=== PATIENT | male | born 1970 | race African-American/Black ===

== ENCOUNTER 2022-04-08 23:01 | Emergency (ER) | payer MEDICAID ==
[~2022-04-08] VITALS: Ht 175.3 cm; Wt 100.0 kg
[2022-04-09] MEDS ORDERED: IBUPROFEN 600MG TABLET PO ONE (02:30)
[2022-04-09] MEDS ORDERED: IBUPROFEN 600MG TABLET PO NR (02:45)
[2022-04-09] MEDS: IBUPROFEN 200MG TABLET PO NR ×2 (02:45→03:22)
[2022-04-09] MEDS ORDERED: IBUP-2029 MT (04:07)
[2022-04-09 04:33] VITALS: BP 120/78
[2022-04-10] MEDS ORDERED: IBUP-2029 PO (10:40)
== END 2022-04-09 04:20 | disposition home or self-care (01) ==
LOC: ER 23:01
DX: M79.671 Pain in right foot (principal); R60.9 Edema, unspecified; E11.9 Type 2 diabetes mellitus without complications
CPT/HCPCS: 73630; 93971; 99284

== ENCOUNTER 2022-04-10 09:13 | Emergency (ER) | payer MEDICAID ==
[~2022-04-10] VITALS: Ht 175.3 cm; Wt 98.0 kg
[~2022-04-10 09:13] MED LIST: IBUP-2029 MT
[2022-04-10 09:23] VITALS: BP 167/111
[2022-04-10] MEDS ORDERED: IBUP-2029 PO (10:40)
== END 2022-04-10 10:00 | disposition home or self-care (01) ==
LOC: ER 09:13
DX: S92.411A Displaced fracture of proximal phalanx of right great toe, initial encounter for closed fracture (principal); E11.9 Type 2 diabetes mellitus without complications; X58.XXXA Exposure to other specified factors, initial encounter; Y93.89 Activity, other specified; Y92.9 Unspecified place or not applicable
CPT/HCPCS: 99282; Z7610

== ENCOUNTER 2025-03-07 12:52 | Emergency (ER) | payer SELFPAY ==
[~2025-03-07] VITALS: Ht 175.3 cm; Wt 104.0 kg
[~2025-03-07 12:52] MED LIST changes: +IBUP-2029 PO
[2025-03-07 12:59] VITALS: O2SAT 98
[2025-03-07] MEDS ORDERED: IBUP-2028 MT (15:41)
[2025-03-07 15:53] VITALS: BP 133/88; PULSE 94; RESP 18; TEMP 36.7; O2SAT 98
== END 2025-03-07 15:54 | disposition home or self-care (01) ==
LOC: ER 12:52
DX: S86.112A Strain of other muscle(s) and tendon(s) of posterior muscle group at lower leg level, left leg, initial encounter (principal); M17.12 Unilateral primary osteoarthritis, left knee; E11.9 Type 2 diabetes mellitus without complications; F12.90 Cannabis use, unspecified, uncomplicated; X58.XXXA Exposure to other specified factors, initial encounter; Y93.89 Activity, other specified; Y92.89 Other specified places as the place of occurrence of the external cause; Y99.8 Other external cause status
CPT/HCPCS: 73562; 73590; 93970; 99284

== ENCOUNTER 2025-03-11 17:05 | Emergency (ER) | payer SELFPAY ==
[~2025-03-11] VITALS: Ht 175.3 cm; Wt 104.0 kg
[~2025-03-11 17:05] MED LIST changes: +IBUP-2028 MT
[2025-03-11 17:11] VITALS: O2SAT 99
[2025-03-11] MEDS ORDERED: CELE100C MT (19:00)
[2025-03-11 19:19] VITALS: BP 131/90; PULSE 80; RESP 16; TEMP 36.7; O2SAT 99
== END 2025-03-11 19:21 | disposition home or self-care (01) ==
LOC: ER 17:05
DX: S76.212A Strain of adductor muscle, fascia and tendon of left thigh, initial encounter (principal); S76.211A Strain of adductor muscle, fascia and tendon of right thigh, initial encounter; I10 Essential (primary) hypertension; E11.9 Type 2 diabetes mellitus without complications; F12.90 Cannabis use, unspecified, uncomplicated; Z79.1 Long term (current) use of non-steroidal anti-inflammatories (NSAID); Z79.899 Other long term (current) drug therapy; X58.XXXA Exposure to other specified factors, initial encounter; Y93.89 Activity, other specified; Y92.89 Other specified places as the place of occurrence of the external cause; Y99.8 Other external cause status
CPT/HCPCS: 99283

== ENCOUNTER 2025-05-20 16:26 | Emergency (ER) | payer SELFPAY ==
[~2025-05-20] VITALS: Ht 188 cm; Wt 140.0 kg
[~2025-05-20 16:26] MED LIST changes: +CELE100C MT; +IBUP-1455 MT; +IBUP-1455 PO; -IBUP-2029 MT; -IBUP-2029 PO
[2025-05-20 16:45] VITALS: BP 0/0; PULSE 0; RESP 0; O2SAT 0
== END 2025-05-20 19:30 ==
LOC: ER 16:26
DX: I46.9 Cardiac arrest, cause unspecified (principal); R06.02 Shortness of breath; E11.9 Type 2 diabetes mellitus without complications
CPT/HCPCS: 31500; 92950; 94664; 99291